=== PATIENT | female | born 1965 | race African-American/Black ===

== ENCOUNTER → 2020-05-10 | Outpatient (CLI) | payer BC ==
--- NOTE | 2020-05-10 16:31 | RAD ---
EXAM: Ultrasound-guided core biopsy right breast; unilateral postbiopsy mammogram. CLINICAL HISTORY: Right breast mass TECHNIQUE AND FINDINGS: Risks, benefits, treatment options, and potential complications were discussed with the patient. Cons ent was obtained and the patient indicated willingness to proceed. A time out was performed immediate ly prior to the procedure to correctly identify the patient, side, site, and type of procedure to be performed. The patient was placed supine on the ultrasound table. Sonographic guidance was used to target the le lacey(s) of concern in the right breast. The overlying skin was marked, prepped, and draped in usual s terile fashion. Local anesthesia was administered using 1% lidocaine. Under imaging guidance, a 14-gauge core biopsy device was advanced to the margin of the lesion(s) and 2 core samples were obtained. Biopsy samples were placed in formalin and sent to pathology for histo pathologic analysis. A biopsy marker clip was then advanced to the site of biopsy utilizing the same guidance technique. Good hemostasis was achieved with light manual compression and sterile dressing w as applied. The patient was then transferred to the mammography suite for craniocaudal and mediolate ral oblique views. Postbiopsy mammogram demonstrates immediate postbiopsy changes and a biopsy marker clip in expected p osition. The patient tolerated the procedure without difficulty and was discharged to home in stable condition with postbiopsy care instructions. IMPRESSION: Successful ultrasound-guided biopsy of right breast mass and postbiopsy clip placement. Pathology is pending. Please refer to the separate report submitted by the Department of Pathology for specimen fi ndings. Electronically signed by: Torsten Baker DO (05/10/2020 4:28 PM) [email or web address]
--- NOTE | 2020-05-16 08:45 | PATHOLOGY ---
[facility] Accession Number: [id number] . 01 Material submitted: . breast - RIGHT BREAST TISSUE 3:00 4CMFN . 02 Diagnosis: Breast tissue, right breast mass 3:00, needle biopsies: - Cystic changes with apocrine metaplasia. . (JPM:mm; 05/15/2020) [facility] 05/15/2020 1031 Local . 02 Comment: Sections of the right breast mass at 3:00 needle biopsy reveal breast tissue showing focal cystic changes with apocrine metaplasia. There is no atypia or evidence of malignancy. . (JPM:mml; 05/15/2020) . 02 Electronically signed: . Bryan Plascencia MD, Pathologist NPI- [id number] . 01 Gross description: . The specimen is received in formalin, labeled "Alissa Valle, right breast 3:00 4 cm from nipple". Received are two needle cores of fibrofatty tissue measuring 1.4 x 0.3 x 0.2 cm in aggregate dimensions. The specimen is submitted entirely in cassettes A1 and A2. The cold ischemic time is 2 minutes. The total formalin fixation time is 52 hours and 25 minutes. (CAA; 05/12/2020) [facility]/QAC 05/12/2020 1038 Local . 02 Pathologist provided ICD-10: N60.81 . 02 CPT . 222965 Specimen Comment: A courtesy copy of this report has been sent to [phone] Specimen Comment: Report sent to Specimen Comment: A duplicate report has been generated due to demographic updates. Performed at: [facility] [address], [place], [place] [id number] MD Natalio Gray MD Phone: [phone] Performed at: [address] [id number] MD Bryan Plascencia MD Phone: [phone]
== END | disposition home or self-care (01) ==
LOC: US 12:50
PROVIDERS: ATTEND Family Medicine
DX: N63.10 Unspecified lump in the right breast, unspecified quadrant (principal); R92.8 Other abnormal and inconclusive findings on diagnostic imaging of breast; Z88.0 Allergy status to penicillin; Z88.8 Allergy status to other drugs, medicaments and biological substances
CPT/HCPCS: 19083; 77065